=== PATIENT | male | born 1960 | race Caucasian/White ===

== ENCOUNTER 2021-08-19 16:55 | Emergency (ER) | payer OTHER, SELFPAY ==
[2021-08-19 16:56] VITALS: BP 152/90; PULSE 97; RESP 18; TEMP 36.8; O2SAT 98; BMI 31.4
--- NOTE | 2021-08-19 17:23 | EDS_ITS ---
HPI History of Present Illness Chief Complaint: Laceration Informant: patient Onset/Context/Timing Onset: Today Mechanism/Context: other (Cut by a chainsaw) Location of pain/injuries: Left shoulder Location: Nose, upper lip, chin, left shoulder Worsened by: Nothing Relieved by: Nothing Associated Symptoms Associated Symptoms: Negative for Parasthesias, Weakness, Loss of function, Inability to ambulate and Loss of consciousness Narrative Narrative: Presents with facial lacerations that occurred today. Patient states he was holding a branch and the friend was using a chain saw to cut a tree limb. Patient states that when the tree limb cut loose, the chainsaw came down and hit him in the face and left shoulder. Patient denies any loss of consciousness. Patient denies any paresthesias or weakness. Patient is unsure of his last tetanus. Patient denies any other injuries. Patient denies any pain. [facility] Medical History (Updated 08/19/21 @ 18:[address] Justin Calzada DO) GERD (gastroesophageal reflux disease) Hypertension Home Medications cephalexin 500 mg PO Q6 #40 capsule 08/19/21 [Rx Last Taken Unknown] Allergy/AdvReac Type Severity Reaction Status Date / Time No Known Allergies Allergy Verified 08/19/21 16:56 Surgical History (Updated 08/19/21 @ 17:[address] Justin Calzada DO) S/P cervical spinal fusion Social History Smoking Status: Never smoker ROS ROS ED Constitutional Constitutional ED: Denies chills or fever(s) Eyes Eyes: Denies blurry vision or change in vision ENT ENT ED: Denies rhinorrhea or sore throat Cardiovascular Cardiovascular: Denies chest pain or palpitations Respiratory/Chest Respiratory/Chest: Denies cough or dyspnea Gastrointestinal Gastrointestinal: Denies nausea or vomiting Genitourinary Genitourinary ED: Denies dysuria or hematuria Musculoskeletal Musculoskeletal: Denies back pain or neck pain Integumentary Denies abscess or rash Neurologic Neurologic: Denies headache(s) or weakness Allergic/Immunologic Allergic/Immunologic ED: Denies mouth swelling or urticaria EXAM Physical Exam Const Vital Signs: 08/19/21 16:56 Temperature 98.2 F Temperature Source Temporal Pulse Rate 97 Respiratory Rate 18 Blood Pressure 152/90 H Blood Pressure Mean 110 Pulse Ox 98 Oxygen Delivery Method Room Air Positive well nourished and well developed General Appearance ED: well developed and NAD HEENT HEENT Narrative: There is a 1.5 cm laceration over the left side of the nose. There is minimal gapping of the wound margins. There is mild bleeding. There is a 2 cm full-thickness linear laceration over the right upper lip with involv ement of the vermilion border. There are no foreign bodies noted. There is moderate gapping of the wound margins. There is a 2 cm full-thickness laceration over the chin. There are no foreign bodies visualized. There is no active bleeding noted. Oral and nasal mucosa are pink and moist. Neck full ROM Neuro oriented x3, CN's II-XII intact bilaterally, moves all extremities, no focal motor deficits and no sensory deficits noted Sensorium / Orientation: alert Skin Skin Narrative: There is an abrasion over the superior aspect of the left shoulder and trapezius area. There is no gapping of the wound margins. There is no bleeding noted. There are no foreign bodies noted. PROC Procedures Lacerations Nose: Length: 1.5 cm Depth: Skin Shape: Linear Prep: Sterile Conditions Laceration repair: Lidocaine and Local Number of Sutures/Ronald: 3 Suture Information: Vicryl and 5-0 upper lip: Length: 2 cm Depth: Sub Q Shape: Linear Prep: Sterile Conditions Laceration repair: Lidocaine and Local Number of Sutures/Bipin: 5 Suture Information: Vicryl and 5-0 MDM MDM MDM Narrative Medical decision making narrative: Patient was given a tetanus booster. The wounds were cleaned and irrigated with copious amounts of normal saline. The nose laceration was anesthetized with 1 cc of lidocaine locally. It was closed with 3 simple interrupted #5-0 Vicryl sutures under sterile technique. The upper lip laceration was anesthetized with 1 cc of lidocaine locally. It was closed with 5 simple interrupted #5-0 Vicryl sutures under sterile technique. Patient tolerated the procedure well. (The wounds were repaired by Dr. Salcedo.) Patient was given a prescription for Keflex. Patient was given his first dose here. Steri-Strips were applied to the left shoulder abrasion. Patient was instructed to follow-up with his primary care physician in 5 to 7 days for wound recheck. Patient understood and was agreeable with the plan. All questions were answered. Discharge Plan Triage Chief Complaint: Laceration ED Provider: Justin Calzada Dx/Rx/DC Orders Clinical Impression: Laceration of nose, Laceration of vermilion border of upper lip, Laceration of chin, Abrasion of left shoulder area Instructions: ED Laceration: All Closures, ED Laceration, Lip or Mouth, ED Scar Tips to Minimize Prescriptions: New cephalexin [cephalexin] 500 MG capsule 500 mg PO Q6 Qty: 40 RF: 0 Referrals: aJneth Patel MD [STAFF PHYSICIAN] - 5-7 Days Disposition Disposition: Home, Self Care
[2021-08-19] MEDS: Lidocaine 1% (20 ml mdv) 20 ML Vial INFILT (17:38)
[2021-08-19] MEDS: Diphth,Pertuss(Acell),Tet Vac 0.5 ML Vial IM (17:39)
[2021-08-19] MEDS: Cephalexin 500 MG Capsule PO (18:33)
== END 2021-08-19 18:38 | disposition home or self-care (01) ==
LOC: ED 18:28
PROVIDERS: Emergency Provider Emergency Medicine; Visit Provider Emergency Medicine
DX: S01.511A Laceration without foreign body of lip, initial encounter (principal); S01.21XA Laceration without foreign body of nose, initial encounter; S01.81XA Laceration without foreign body of other part of head, initial encounter; S40.812A Abrasion of left upper arm, initial encounter; Z23 Encounter for immunization; W29.3XXA Contact with powered garden and outdoor hand tools and machinery, initial encounter; I10 Essential (primary) hypertension; K21.9 Gastro-esophageal reflux disease without esophagitis
CPT/HCPCS: 12013; 90715; 99284